=== PATIENT | male | born 1985 | race Caucasian/White ===

== ENCOUNTER 2017-07-18 04:59 | Emergency (ER) | payer OTHER ==
[~2017-07-18] VITALS: Ht 198.1 cm; Wt 122.2 kg
[~2017-07-18 04:59] MED LIST: NAPROSYN500 MG PO; NORCO 5/3251 TABLET PO
[2017-07-18 05:56] LABS: HEMATOCRIT 39.7 % (38.0-50.0); HEMOGLOBIN 13.9 G/DL (12.5-16.6); MCH 30.4 PG (29.0-34.0); MCV 86.9 FL (86-99); PLATELET COUNT 185 K/uL (156-360); RBC DIS.WIDTH-CV 12.6 % (11.8-14.6); RBC DIS.WIDTH-SD 39.8 % (39-53); RED BLOOD COUNT 4.57 M/uL (4.00-5.50); WHITE BLOOD COUNT 9.1 K/uL (4.1-10.2)
[2017-07-18 05:58] LABS: ALBUMIN 4.3 g/dL (3.2-4.8); CHLORIDE 104 mEq/L (99-109); POTASSIUM 3.4 mEq/L (3.7-5.4); SODIUM 142 mEq/L (136-147)
[2017-07-18 06:00] LABS: GLUCOSE 116 mg/dL (70-99); TOTAL PROTEIN 7.1 g/dL (6.4-8.3)
[2017-07-18 06:02] LABS: TOTAL BILIRUBIN 0.8 mg/dL (0.0-1.0)
[2017-07-18 06:04] LABS: ALKALINE PHOSPHATASE 55 IU/L (3-129); CREATININE 0.8 mg/dL (0.6-1.3); GFR ESTIMATE (CALCULATED) > 59 mL/min/ (58.99-99999)
[2017-07-18 06:05] LABS: UREA NITROGEN (BUN) 7 mg/dL (9-23)
[2017-07-18 06:06] LABS: AST (GOT) 50 IU/L (2-34)
[2017-07-18 06:07] LABS: ALT (GPT) 51 IU/L (3-49); LIPASE 20 U/L (1.0-51.0)
[2017-07-18 06:16] LABS: APPEARANCE SL.HAZY ((CLEAR)); BILIRUBIN NEGATIVE; BLOOD NEGATIVE; COLOR YELLOW ((YELLOW)); GLUCOSE (STRIP) NEGATIVE; KETONES 20; LEUKOCYTES NEGATIVE; NITRITE NEGATIVE; PROTEIN (STRIP) NEGATIVE; SPECIFIC GRAVITY 1.015 (1.000-1.030); UROBILINOGEN 0.2 MG/DL (0.2-1.0)
[2017-07-18 06:20] LABS: BACTERIA RARE /HPF; EPITHELIAL CELLS NONE SEEN /HPF; HYALINE CASTS 0-5 /LPF; MUCUS TRACE /LPF; UCUL ADDED? NO; WHITE BLOOD CELLS 0-5 /HPF (0-5)
[2017-07-18] MEDS ORDERED: ZOFRAN4 MG PO (06:38)
[2017-07-18] MEDS ORDERED: NORCO 5/3251 TABLET PO (06:38)
[2017-07-18] MEDS ORDERED: FLOMAX0.4 MG PO (06:38)
[2017-07-18 07:14] VITALS: BP 129/76
== END 2017-07-18 07:21 ==
LOC: EME → EDBD 04:59 → EME 04:59
PROVIDERS: Emergency Medicine
DX: N20.1 Calculus of ureter (principal); R31.9 Hematuria, unspecified
CPT/HCPCS: 74176; 80053; 81003; 83690; 85027; 99281; 99284; J1885; J2405; J7030